=== PATIENT | female | born 1965 ===

== ENCOUNTER 2024-05-23 08:45 | Inpatient (IN) | payer OTHER ==
[~2024-05-23] VITALS: Ht 165.1 cm; Wt 104.3 kg
[~2024-05-23 08:45] MED LIST: COZAAR100 MG; LOPRESSOR25 MG; NEURONTIN300 MG; TOPROL XL50 MG
[2024-05-23] MEDS ORDERED: LOSARTAN-HCTZ1 EAC2 PO (09:22)
[2024-05-23] MEDS ORDERED: LYRICA50 MG PO (09:22)
[2024-05-23] MEDS ORDERED: FOLIC ACID1 MG PO (09:23)
[2024-05-23] MEDS ORDERED: LYRICA225 MG PO (09:23)
[2024-05-23] MEDS ORDERED: VITABEX IRON C1 EACH (09:23)
[2024-05-23] MEDS ORDERED: AMBIEN CR12.5 MG PO (09:24)
[2024-05-23] MEDS ORDERED: HADLIMA40 MG/0.8 (09:24)
[2024-05-23] MEDS ORDERED: MTX SUPPORT TA1 EACH PO (09:25)
[2024-05-23 09:32] VITALS: BP 144/79
[2024-05-23 09:48] LABS: HEMATOCRIT 40.7 % (36.0-45.00); HEMOGLOBIN 13.3 g/dL (12.0-15.00); MEAN CELL VOLUME 94.1 fL (80.00-100.00); MEAN CORPUSCULAR HEMOGLOBIN 30.8 pg (27.00-32.0); MEAN CORPUSCULAR HGB CONC 32.8 g/dl (32.0-36.0); PLATELET COUNT 201 K/uL (150-450); RED BLOOD COUNT 4.33 M/uL (4.00-6.00); RED CELL DISTRIBUTION WIDTH 14.9 % (11.5-14.5)
[2024-05-23 09:58] LABS: URINE APPEARANCE Clear; URINE BILIRRUBIN Negative (NEGATIVE); URINE BLOOD Negative; URINE COLOR Yellow; URINE GLUCOSE Negative (NEGATIVE); URINE KETONE Negative (NEGATIVE); URINE LEUKOCYTE Negative; URINE NITRATE Negative; URINE PROTEIN Negative (NEGATIVE); URINE UROBILINOGEN 0.2 E.U./dl
[2024-05-23 09:59] LABS: URINE BACTERIA 314.5 uL (0.0-1933); URINE WBC 12.6 uL (0.0-23.2)
[2024-05-23 10:00] LABS: URINE CAST 0.44 uL (0.0-1.40)
[2024-05-23 10:16] LABS: PARTIAL THROMBOPLASTIN TIME 27.1 SECONDS (22.0-34.0); PROTHROMBIN TIME 10.9 SECONDS (9.0-11.5)
[2024-05-23 10:25] LABS: RH POSITIVE
[2024-05-23 10:31] LABS: ALBUMIN 3.7 gm/dL (3.4-5.0); BILIRUBIN TOTAL 0.6 mg/dL (0.3-1.2); CALCIUM 9.4 mg/dL (8.5-10.1); CREATININE SERUM 0.85 mg/dL (0.55-1.02); GFR 68.22; GLOBULINA 3.4 G/DL (2.4-3.5); POTASSIUM 3.98 mEq/L (3.5-5.1); TOTAL PROTEIN 7.1 gm/dL (6.4-8.2)
[2024-05-29] MEDS ORDERED: CEFOXITIN SODIUM 2,000 MG VIAL IV ONE (09:00)
[2024-05-29] MEDS ORDERED: METHYLPREDNISOLONE ACETATE 80 MG/ML VIAL IM ONE (09:15)
[2024-05-29] MEDS ORDERED: MORPHINE SULFATE 4 MG/ML CARTRIDGE IV ONE (09:15)
[2024-05-29] MEDS ORDERED: KETOROLAC TROMETHAMINE 60 MG VIAL IM ONE (09:15)
[2024-05-29] MEDS ORDERED: VANCOMYCIN HCL 1,000 MG VIAL IV ONE (09:15)
[2024-05-29] MEDS ORDERED: TRANEXAMIC ACID 100MG/1ML (1000MG) AMPUL IV ONE ×2 (09:15)
[2024-05-29] MEDS ORDERED: MORPHINE SULFATE 4 MG/ML CARTRIDGE IV PRN (11:00)
[2024-05-29] MEDS ORDERED: ONDANSETRON HCL 2 MG/ML VIAL IV PRN (11:00)
[2024-05-29] MEDS ORDERED: MORPHINE SULFATE 2 MG/ML CARTRIDGE IV NR (11:00)
[2024-05-29] MEDS ORDERED: SODIUM CHLORIDE 0.45 % 1,000 ML IV SCH (11:00)
[2024-05-29 12:48] LABS: HEMATOCRIT 36.8 % (36.0-45.00); HEMOGLOBIN 12.2 g/dL (12.0-15.00); RED BLOOD COUNT 3.96 M/uL (4.00-6.00)
[2024-05-29 17:16] VITALS: BP 106/63
[2024-05-29] MEDS ORDERED: CEFAZOLIN SODIUM 1,000 MG VIAL IV SCH (18:00)
[2024-05-29] MEDS ORDERED: AMBIEN 12.5 MG PO SCH (21:00)
[2024-05-29] MEDS ORDERED: GENTAMICIN SULFATE 40 MG/ML VIAL IV SCH (21:00)
[2024-05-30 00:56] VITALS: BP 99/65
[2024-05-30 01:32] LABS: HEMATOCRIT 36.6 % (36.0-45.00); HEMOGLOBIN 12.3 g/dL (12.0-15.00); MEAN CELL VOLUME 92.2 fL (80.00-100.00); MEAN CORPUSCULAR HGB CONC 33.6 g/dl (32.0-36.0); PLATELET COUNT 181 K/uL (150-450); RED BLOOD COUNT 3.97 M/uL (4.00-6.00); RED CELL DISTRIBUTION WIDTH 15.5 % (11.5-14.5)
[2024-05-30] MEDS ORDERED: ACETAMINOPHEN WITH CODEINE 1 UDTAB TABLET PO PRN (08:00)
[2024-05-30] MEDS ORDERED: LOSARTAN/HYDROCHLOROTHIAZIDE 1 TAB TABLET PO SCH (09:00)
[2024-05-30] MEDS ORDERED: BACITRACIN 28.35 GM OINT.TUBE TOP SCH (09:00)
[2024-05-30] MEDS ORDERED: RIVAROXABAN 10 MG TAB PO SCH (09:00)
[2024-05-30] MEDS ORDERED: SENNA/DOCUSATE SODIUM 1 TAB TABLET PO SCH (09:00)
[2024-05-30] MEDS ORDERED: IRON FUM,PS/FOLIC/BCOMP,C NO.9 1 CAP CAPSULE PO SCH (09:00)
[2024-05-30 09:09] VITALS: BP 118/68
[2024-05-30] MEDS ORDERED: CEFAZOLIN SODIUM 1,000 MG VIAL IV SCH (14:00)
[2024-05-30 15:59] VITALS: BP 106/69
[2024-05-30] MEDS ORDERED: AMBIEN 12.5 MG PO SCH (21:00)
[2024-05-31] VITALS: BP 90/55
[2024-05-31 01:25] LABS: MEAN CELL VOLUME 93.1 fL (80.00-100.00); MEAN CORPUSCULAR HGB CONC 32.5 g/dl (32.0-36.0); PLATELET COUNT 195 K/uL (150-450); RED BLOOD COUNT 3.75 M/uL (4.00-6.00); RED CELL DISTRIBUTION WIDTH 15.3 % (11.5-14.5)
[2024-05-31 01:29] LABS: HEMOGLOBIN 11.4 g/dL (12.0-15.00); MEAN CORPUSCULAR HEMOGLOBIN 30.4 pg (27.00-32.0)
[2024-05-31] MEDS ORDERED: XARELTO10 MG PO (08:13)
[2024-05-31] MEDS ORDERED: INTEGRA PLUS C1 EACH PO (08:13)
[2024-05-31] MEDS ORDERED: ACETAMINOPHEN-1 EAC2 PO (08:14)
[2024-05-31] MEDS ORDERED: DUI500 PO (08:14)
[2024-05-31 08:43] VITALS: BP 102/60
== END 2024-05-31 13:39 | DRG 470 ==
LOC: O/R 05-29 05:42 → SURH 05-29 08:45 → OB/GYN 05-29 15:21
PROVIDERS: ADMIT Orthopaedic Surgery Sports Medicine; ATTEND Orthopaedic Surgery Sports Medicine
PROC: 0SRD0J9 Replacement of Left Knee Joint with Synthetic Substitute, Cemented, Open Approach (ICD-10-PCS; principal; 2024-05-29 13:30)
DX: M17.12 Unilateral primary osteoarthritis, left knee (principal); Z96.652 Presence of left artificial knee joint